=== PATIENT | female | born 1955 | race Caucasian/White ===

== ENCOUNTER 2018-10-08 19:24 | Emergency (ER) | payer BC ==
[~2018-10-08] VITALS: Ht 172.7 cm; Wt 102.3 kg
[2018-10-08 19:32] VITALS: Ht 172.7 cm; Wt 102.3 kg
[2018-10-08] MEDS ORDERED: COZAAR25 MG (19:33)
[2018-10-08 21:29] VITALS: BP 165/97
[2018-10-18] MEDS ORDERED: CENTRUM SILVER1 EAC3 PO (14:11)
[2018-10-18] MEDS ORDERED: HYDROCODON-ACE1 EAC7 PO (14:12)
[2018-10-19 12:55] VITALS: Ht 172.7 cm; Wt 102.3 kg
== END 2018-10-08 21:29 | disposition home or self-care (01) ==
LOC: D.ER 19:24
DX: S00.03XA Contusion of scalp, initial encounter (principal); V03.90XA Pedestrian on foot injured in collision with car, pick-up truck or van, unspecified whether traffic or nontraffic accident, initial encounter; Y93.01 Activity, walking, marching and hiking; Y92.481 Parking lot as the place of occurrence of the external cause; S62.102A Fracture of unspecified carpal bone, left wrist, initial encounter for closed fracture

== ENCOUNTER 2018-10-19 10:50 | Day surgery (SDC) | payer BC ==
[2018-10-18 14:58] LABS: BASOPHILS 0.2 % (0-2); EOSINOPHILS 0.9 % (0-7); HEMATOCRIT 41.7 % (36.0-48.0); HEMOGLOBIN 13.8 g/dL (12-16); IMMATURE GRANULOCYTES 0.3 % (0-5); LYMPHOCYTES 18.4 % (15-50); MCH 31.9 pg (26.0-34.0); MCHC 33.1 g/dL (31.0-37.0); MCV 96.3 fL (80.0-100.0); MONOCYTES 7.5 % (2-11); NEUTROPHILS 72.7 % (40-80); PLATELET COUNT 293 10x3/uL (130-400); RBC 4.33 10x6/uL (4.00-5.40); RDW 13.2 % (11.5-14.5); WBC 9.9 10x3/uL (4.8-10.8)
[2018-10-18 15:18] LABS: ANION GAP 15.8 mmol/L (8-16); CARBON DIOXIDE 28.1 mmol/L (21.0-32.0); CREATININE - SERUM 0.9 mg/dL (0.6-1.3); POTASSIUM - SERUM 3.9 mmol/L (3.5-5.1)
[~2018-10-19] VITALS: Ht 172.7 cm; Wt 102.1 kg
[~2018-10-19 10:50] MED LIST: CENTRUM SILVER1 EAC3 PO; COZAAR25 MG; HYDROCODON-ACE1 EAC7 PO
[2018-10-19 12:55] VITALS: BP 180/96; Ht 172.7 cm; Wt 102.1 kg
[2018-10-19 21:09] VITALS: BP 178/77
--- NOTE | 2018-10-19 23:47 | NUR ---
VITALS SIGNS STABLE. DENIES PAIN. PT VOIDED AND ATE TURKEY SANDWICH. REVIEWED POST OP INSTRUCTION SHEET WITH PT AND GAVE COPY. PT ESCORTED OUT BY SHORT HAUL DRIVER VIA WHEELCHAIR.
== END 2018-10-19 23:45 | disposition home or self-care (01) ==
LOC: D.OPS 10:50 → D.PAN 12:45 → D.OPS 14:00 → D.MS 20:58 → D.OPS 23:45
PROVIDERS: Orthopaedic Surgery
DX: S52.502A Unspecified fracture of the lower end of left radius, initial encounter for closed fracture (principal); Z01.812 Encounter for preprocedural laboratory examination